=== PATIENT | female | born 1995 | race Caucasian/White ===

== ENCOUNTER 2022-04-09 13:59 | Inpatient (IN) | payer BC ==
[~2022-04-09] VITALS: Ht 162.6 cm; Wt 57.0 kg
[2022-04-09 14:35] LABS: CLARITY,URINE CLEAR (Clear); COLOR,URINE YELLOW (Yellow); GLUCOSE, URINE NEGATIVE (Neg); KETONES,URINE TRACE mg/dl (Neg); LEUKOCYTE ESTERASE ,URINE NEGATIVE (Neg); NITRITES, URINE NEGATIVE (Neg); OCCULT BLOOD,URINE NEGATIVE (Neg); PROTEIN,URINE NEGATIVE (Neg); UROBILINOGEN,URINE 0.2 E.U/dL (0.2-1.0)
[2022-04-09 14:36] LABS: URINE HCG NEGATIVE (NEG)
[2022-04-09 14:37] LABS: UA COLLECTION TYPE CLN CATCH MIDSTREAM
[2022-04-09 14:39] LABS: BASOPHILS % (AUTO) 0.2 % (0-1); EOSINOPHILS % (AUTO) 0.1 % (0-6); HEMATOCRIT 40.6 % (35.0-45.0); HEMOGLOBIN 13.8 g/dl (12.0-16.0); MEAN CORPUSCULAR HEMOGLOBIN 31.2 PG (27.0-31.0); MEAN CORPUSCULAR HGB CONC 34.1 g/dL (33.0-36.5); MEAN CORPUSCULAR VOLUME 91.7 FL (78-98); MEAN PLATELET VOLUME 9.6 FL (7.4-10.4); NEUTROPHILS # (AUTO) 17.5 X10'3 (1.8-7.7); NEUTROPHILS % (AUTO) 89.7 % (42-75); PLATELET COUNT 184 X10'3 (140-440); RED BLOOD COUNT 4.42 X10'6 (4.20-5.60); RED CELL DISTRIBUTION WIDTH 12.7 % (11.5-14.5); WHITE BLOOD COUNT 19.5 X10'3 (4.5-11.0)
[2022-04-09 14:49] LABS: ALANINE AMINOTRANSFERASE 17 U/L (12-78); ALBUMIN 4.4 G/DL (3.4-5.0); ALBUMIN/GLOBULIN RATIO 1.2 (1.1-1.5); ALKALINE PHOSPHATASE 56 IU/L (46-116); ANION GAP 10 (8-16); ASPARTATE AMINO TRANSFERASE 22 U/L (10-37); BILIRUBIN,TOTAL 1.7 MG/DL (0.1-1.0); BLOOD UREA NITROGEN 8 MG/DL (7-18); BUN/CREATININE RATIO 10.7 (6.6-38.0); CALCIUM 8.9 MG/DL (8.5-10.1); CHLORIDE 99 MMOL/L (99-107); CREATININE 0.75 MG/DL (0.40-0.90); GLUCOSE 99 MG/DL (70-104); LIPASE 96 U/L (73-393); POTASSIUM 3.4 MMOL/L (3.5-5.1); SODIUM 136 MMOL/L (135-145); eGFR > 90 ML/MIN
[2022-04-09] MEDS ORDERED: ondansetron/PF 4mg/2ml inj IV ONE ×2 (15:35→19:20)
[2022-04-09] MEDS ORDERED: normal saline 1000ML IV soln IVB ONE (15:35)
[2022-04-09] MEDS: morphine 4 MG/ML inj SYRINge IV PRN ×2 (16:07→19:43)
[2022-04-09] MEDS ORDERED: magnesium 4gm in 100ml NS 100 ML IV PRN (16:35)
[2022-04-09] MEDS ORDERED: HYDROcodone/acetaminophen 10/325mg tab PO PRN (16:35)
[2022-04-09] MEDS: potassium Cl 20mEq in NS 1,000 ML IV SCH ×2 (16:35→21:16)
[2022-04-09] MEDS ORDERED: potassium Cl 20 mEq SR tablet PO PRN ×2 (16:35)
[2022-04-09] MEDS ORDERED: mag hydrox/Alum hydrox/simeth 30ml oral suspension PO PRN (16:35)
[2022-04-09] MEDS ORDERED: HYDROcodone/acetaminophen 5mg/325mg tablet PO PRN (16:35)
[2022-04-09] MEDS ORDERED: ondansetron 4mg rapidly disintigrating tab PO PRN (16:35)
[2022-04-09] MEDS ORDERED: morphine 2 MG/ML inj. syringe IV PRN (16:35)
[2022-04-09] MEDS ORDERED: acetaminophen 325mg tablet PO PRN (16:35)
[2022-04-09] MEDS ORDERED: acetaminophen 650mg rectal suppository RC PRN (16:35)
[2022-04-09] MEDS ORDERED: magnesium Cl slow-release 64mg tablet PO PRN (16:35)
[2022-04-09] MEDS ORDERED: magnesium hydroxide 30ml (MOM) UD suspension PO PRN (16:35)
[2022-04-09] MEDS ORDERED: potassium Cl 40MEQ/1/2NS 520ml 520 ML IV PRN (16:35)
[2022-04-09 17:12] LABS: MAGNESIUM 1.7 MG/DL (1.5-2.4)
[2022-04-09] MEDS ORDERED: NO HOME MEDS (17:34)
[2022-04-09] MEDS ORDERED: potassium Cl 20 mEq SR tablet PO STA (17:51)
--- NOTE | 2022-04-09 18:24 | NUR ---
report to maddi reyna for continuation of care
[2022-04-09 18:50] LABS: APTT 27 SECONDS (22-32)
[2022-04-09] MEDS: K and/or MAG REPLACEMENT MC SCH (20:00)
[2022-04-09] MEDS ORDERED: temazepam 15mg capsule PO PRN (21:00)
[2022-04-09 22:00] VITALS: BP 107/67
[2022-04-09] MEDS: morphine 2 MG/ML inj. syringe IV PRN (23:45)
[2022-04-10] MEDS: morphine 2 MG/ML inj. syringe IV PRN (04:44)
[2022-04-10] MEDS: ondansetron/PF 4mg/2ml inj IV PRN ×3 (04:51→19:23)
--- NOTE | 2022-04-10 06:19 | NUR ---
Problems reprioritized. Patient report given, questions answered & plan of care reviewed with TED BURNS.
--- NOTE | 2022-04-10 06:32 | NUR ---
Patient in room [facility]. I have received report from Bonita JEAN and had the opportunity to ask questions and assume patient care.
[2022-04-10 07:00] VITALS: BP 90/57
[2022-04-10 07:05] LABS: BASOPHILS % (AUTO) 0.3 % (0-1); EOSINOPHILS % (AUTO) 0.3 % (0-6); HEMATOCRIT 34.4 % (35.0-45.0); HEMOGLOBIN 11.9 g/dl (12.0-16.0); LYMPHOCYTES # (AUTO) 0.7 X10'3 (1.1-4.8); LYMPHOCYTES % (AUTO) 7.4 % (21-51); MEAN CORPUSCULAR HEMOGLOBIN 32.2 PG (27.0-31.0); MEAN CORPUSCULAR HGB CONC 34.6 g/dL (33.0-36.5); MEAN CORPUSCULAR VOLUME 93.2 FL (78-98); MEAN PLATELET VOLUME 10.1 FL (7.4-10.4); MONOCYTES # (AUTO) 0.5 X10'3 (0-0.9); MONOCYTES % (AUTO) 5.3 % (2-12); NEUTROPHILS # (AUTO) 8.8 X10'3 (1.8-7.7); NEUTROPHILS % (AUTO) 86.7 % (42-75); PLATELET COUNT 129 X10'3 (140-440); RED BLOOD COUNT 3.69 X10'6 (4.20-5.60); RED CELL DISTRIBUTION WIDTH 12.8 % (11.5-14.5); WHITE BLOOD COUNT 10.1 X10'3 (4.5-11.0)
[2022-04-10] MEDS: K and/or MAG REPLACEMENT MC SCH ×2 (08:00→20:00)
[2022-04-10 08:10] LABS: ALANINE AMINOTRANSFERASE 13 U/L (12-78); ALBUMIN 3.4 G/DL (3.4-5.0); ALBUMIN/GLOBULIN RATIO 1.1 (1.1-1.5); ALKALINE PHOSPHATASE 44 IU/L (46-116); ANION GAP 8 (8-16); ASPARTATE AMINO TRANSFERASE 17 U/L (10-37); BILIRUBIN,TOTAL 2.3 MG/DL (0.1-1.0); BLOOD UREA NITROGEN 7 MG/DL (7-18); BUN/CREATININE RATIO 9.5 (6.6-38.0); CALCIUM 8.3 MG/DL (8.5-10.1); CHLORIDE 105 MMOL/L (99-107); CREATININE 0.74 MG/DL (0.40-0.90); GLUCOSE 96 MG/DL (70-104); POTASSIUM 3.9 MMOL/L (3.5-5.1); SODIUM 138 MMOL/L (135-145); TOTAL CARBON DIOXIDE 25.1 MMOL/L (24-32); TOTAL PROTEIN 6.5 G/DL (6.4-8.2); eGFR > 90 ML/MIN
[2022-04-10] MEDS ORDERED: pantoprazole 40mg IV 80 MG in normal saline 100ml IV soln 100 ML IV SCH (08:50)
[2022-04-10] MEDS ORDERED: HYDROmorphone 1 mg/ml syringe IV PRN (08:50)
[2022-04-10] MEDS ORDERED: proCHLORperazine 10 MG/2 ml inj IV PRN (08:50)
[2022-04-10] MEDS ORDERED: HYDROmorphone inj. 0.5 MG/0.5 ML DISP.SYRIN IV PRN (08:50)
[2022-04-10 09:00] LABS: C DIFF SPECIMEN=DIARRHEA? ACCEPTABLE; C DIFFICILE TOXINS A&B POSITIVE (Neg)
[2022-04-10] MEDS ORDERED: pantoprazole 80 MG in NS 100ml IV soln IV ONE (09:00)
[2022-04-10] MEDS ORDERED: ketorolac tromethamine 15mg/ml inj. IV ONE (09:05)
[2022-04-10] MEDS ORDERED: LORazepam 2 mg/ml vial IV PRN (09:05)
[2022-04-10] MEDS ORDERED: vancomycin 125mg/5ml ORAL solution 5ml UD oral syringe PO SCH (09:31)
--- NOTE | 2022-04-10 09:49 | NUR ---
Paged hospitalist PAGER ID: [phone] MESSAGE: RE: 346B Panfilo Hutchinson, Patient adamant does not want Vanco, Father and Brother both had severe reactions to it.
[2022-04-10] MEDS: metroNIDAZOLE 500mg tablet PO SCH ×2 (10:51→19:19)
[2022-04-10 11:32] VITALS: BP 97/59
[2022-04-10] MEDS ORDERED: lactobacillus rhamnosus 10,000 MMU CELLS/CAPSULE PO SCH (12:30)
[2022-04-10] MEDS: potassium Cl 20mEq in NS 1,000 ML IV SCH (12:56)
--- NOTE | 2022-04-10 16:38 | NUR ---
Paged hospitalist PAGER ID: [phone] MESSAGE: Re: Cassie Hutchinson, 346B Patient heart rate 133 and feeling anxious. B/P 102/55, O2 96% on Room air. Resp 18. [facility] 5471 Hospitalist ordered Ativan 0.5mg PO tid PRN for anxiety.
[2022-04-10] MEDS: lactobacillus rhamnosus 10,000 MMU CELLS/CAPSULE PO SCH (16:54)
[2022-04-10] MEDS: LORazepam 0.5 MG tablet PO PRN (16:55)
--- NOTE | 2022-04-10 18:25 | NUR ---
Problems reprioritized. Patient report given, questions answered & plan of care reviewed with Bonita JEAN.
[2022-04-10 18:30] VITALS: BP 102/55
[2022-04-10] MEDS: acetaminophen 325mg tablet PO PRN (19:46)
[2022-04-10 22:00] VITALS: BP 100/63
[2022-04-11 02:18] VITALS: BP 108/61
[2022-04-11] MEDS: potassium Cl 20mEq in NS 1,000 ML IV SCH (02:41)
[2022-04-11 06:00] VITALS: BP 106/62
[2022-04-11 06:00] LABS: BASOPHILS % (AUTO) 0.2 % (0-1); EOSINOPHILS % (AUTO) 0.2 % (0-6); LYMPHOCYTES # (AUTO) 0.8 X10'3 (1.1-4.8); LYMPHOCYTES % (AUTO) 8.3 % (21-51); MEAN CORPUSCULAR HEMOGLOBIN 31.8 PG (27.0-31.0); MEAN CORPUSCULAR HGB CONC 34.4 g/dL (33.0-36.5); MEAN CORPUSCULAR VOLUME 92.5 FL (78-98); MEAN PLATELET VOLUME 9.2 FL (7.4-10.4); MONOCYTES # (AUTO) 0.6 X10'3 (0-0.9); NEUTROPHILS # (AUTO) 8.4 X10'3 (1.8-7.7); NEUTROPHILS % (AUTO) 85.3 % (42-75); PLATELET COUNT 130 X10'3 (140-440); RED BLOOD COUNT 3.78 X10'6 (4.20-5.60); RED CELL DISTRIBUTION WIDTH 12.4 % (11.5-14.5); WHITE BLOOD COUNT 9.8 X10'3 (4.5-11.0)
[2022-04-11 06:14] LABS: ALBUMIN 3.2 G/DL (3.4-5.0); ALBUMIN/GLOBULIN RATIO 0.9 (1.1-1.5); ALKALINE PHOSPHATASE 52 IU/L (46-116); ANION GAP 8 (8-16); ASPARTATE AMINO TRANSFERASE 20 U/L (10-37); BILIRUBIN,TOTAL 1.7 MG/DL (0.1-1.0); BLOOD UREA NITROGEN 6 MG/DL (7-18); BUN/CREATININE RATIO 8.1 (6.6-38.0); CALCIUM 7.9 MG/DL (8.5-10.1); CHLORIDE 102 MMOL/L (99-107); CREATININE 0.74 MG/DL (0.40-0.90); GLUCOSE 75 MG/DL (70-104); MAGNESIUM 1.7 MG/DL (1.5-2.4); POTASSIUM 3.8 MMOL/L (3.5-5.1); SODIUM 135 MMOL/L (135-145); TOTAL CARBON DIOXIDE 24.9 MMOL/L (24-32); TOTAL PROTEIN 6.6 G/DL (6.4-8.2); eGFR > 90 ML/MIN
[2022-04-11 06:15] LABS: ALANINE AMINOTRANSFERASE 14 U/L (12-78)
--- NOTE | 2022-04-11 06:44 | NUR ---
Problems reprioritized. Patient report given, questions answered & plan of care reviewed with TED ROSALES.
--- NOTE | 2022-04-11 06:49 | NUR ---
Patient in room [facility]. I have received report from Bonita JEAN and had the opportunity to ask questions and assume patient care.
[2022-04-11] MEDS ORDERED: pantoprazole 40mg Tablet.DR PO SCH (07:30)
[2022-04-11] MEDS: metroNIDAZOLE 500mg tablet PO SCH (07:45)
[2022-04-11] MEDS: lactobacillus rhamnosus 10,000 MMU CELLS/CAPSULE PO SCH ×2 (07:45→12:48)
[2022-04-11] MEDS: LORazepam 0.5 MG tablet PO PRN (07:45)
[2022-04-11] MEDS: K and/or MAG REPLACEMENT MC SCH (08:00)
[2022-04-11 10:00] VITALS: BP 117/67
[2022-04-11] MEDS: acetaminophen 325mg tablet PO PRN (12:48)
[2022-04-11] MEDS ORDERED: METR-159 PO (15:24)
[2022-04-11] MEDS ORDERED: LORA-268 PO (15:27)
[2022-04-11] MEDS ORDERED: LACT1CAP65 PO (15:27)
[2022-04-11] MEDS ORDERED: ONDA4TAB12 PO (15:27)
--- NOTE | 2022-04-11 15:40 | NUR ---
PATIENT VERY ANXIOUS THIS AM. MEDICATED WITH ATIVAN WITH GOOD EFFECT.very anxious to go home informed staff that she had a formed BM. Dr Kat in to see patient . patient is for DC. All DC instructions given to patient. Patient awaiting ride at this time.
--- NOTE | 2022-04-11 16:36 | NUR ---
patient awaiting in lobby for patients mother.
--- NOTE | 2022-04-11 16:45 | NUR ---
PATIENT dc HOME VIA PRIVATE CAR WITH MOTHER TO HOME IN STABLE CONDITION
== END 2022-04-11 16:29 | disposition home or self-care (01) | DRG 373 ==
LOC: ER 14:00 → ED HOLD 16:43 → EDBEDREQ 17:18 → SUR 3N 20:16
PROVIDERS: ADMIT Family Medicine; ATTEND Family Medicine
DX: A04.72 Enterocolitis due to Clostridium difficile, not specified as recurrent (principal); E87.6 Hypokalemia; Z88.8 Allergy status to other drugs, medicaments and biological substances
CPT/HCPCS: 36415; 74176; 80053; 81003; 81025; 83605; 83690; 83735; 84100; 84145; 85025; 85610; 85730; 87040; 87045; 87046; 87081; 87324; 87449; 89055; 99285; C9113; G0378; J0780; J1170; J2270; J2405; J3480; J3490; J7030